=== PATIENT | female | born 1985 | race Caucasian/White ===

== ENCOUNTER 2016-12-28 00:09 | Inpatient (IN) | payer OTHER ==
[~2016-12-28] VITALS: Ht 163.8 cm; Wt 80.3 kg
[~2016-12-28 00:09] MED LIST: LEVO137T24 PO
[2016-12-28] MEDS ORDERED: Lactated Ringer's 1,000 ML IV PRN ×2 (15:51→19:38)
[2016-12-28] MEDS ORDERED: Lactated Ringer's 1,000 ML IV SCH ×2 (15:51→19:31)
[2016-12-28] MEDS ORDERED: Oxytocin 30 Units/500 mL LR 30 UNITS in IV Premix 1 EACH IV PRN ×2 (15:55→19:40)
[2016-12-28] MEDS ORDERED: Carboprost 250 mCg/mL Inj IM PRN ×2 (15:55→19:40)
[2016-12-28] MEDS ORDERED: Oxytocin 10 Unit/mL Inj IM PRN ×2 (15:55→19:40)
[2016-12-28] MEDS ORDERED: Sodium Chloride LOK Flush 10 mL Syringe IVFLUSH PRN ×2 (15:55→19:40)
[2016-12-28] MEDS ORDERED: Ondansetron 2 mg/mL 2 mL Inj IVPUSH PRN ×2 (15:55→19:35)
[2016-12-28] MEDS ORDERED: Hemorrhage Kit, Post Partum XX ONE ×3 (15:55→20:05)
[2016-12-28] MEDS ORDERED: Methylergonovine 0.2 mg/mL Inj IM PRN ×2 (15:55→19:40)
[2016-12-28] MEDS ORDERED: fentaNYL-PF 50 mCg/mL 2 mL Inj IVPUSH PRN ×2 (15:55→19:40)
[2016-12-28] MEDS ORDERED: diphenhydrAMINE 50 mg Capsule PO PRN (15:55)
[2016-12-28] MEDS ORDERED: Ondansetron 2 mg/mL 2 mL Inj ONE (17:46)
[2016-12-28] MEDS ORDERED: Lactated Ringer's 500 ML IV ONE (19:31)
[2016-12-28] MEDS ORDERED: fentaNYL 2 mCg/mL-Bupiv 0.125% 100 ML EPIDURAL SCH (19:35)
[2016-12-28] MEDS ORDERED: EPHEDrine Sulfate 50 mg/mL Inj IVPUSH PRN (19:35)
[2016-12-28] MEDS ORDERED: Atropine 1 mg/10 mL (Code) Syringe IVPUSH PRN (19:35)
[2016-12-28 19:52] LABS: Mean Corpuscular Hemoglobin 30.4 pg (27.0-35.0); Mean Corpuscular Volume 91.4 fL (81-100)
--- NOTE | 2016-12-28 23:04 | HP ---
[address] [address] HISTORY AND PHYSICAL PATIENT: BILL GARCIA : 1985 MR#: [id number] ADMIT: 12/28/2016 JOB ID: [id number] HISTORY OF PRESENT ILLNESS: This is a 31-year-old female. She is 3, para 2-0-0-2, at 39 weeks gestation. She presented to [facility] for scheduled induction of labor by Dr. Payne. She had occasional contractions, normal movement, heart tracing category 1. This is a patient who has routine care at [facility]. During her care, it was noted her blood type was O-positive, varicella immune, rubella immune. Pap smear negative. HIV negative. HBsAg negative. RPR negative. Chlamydia and gonorrhea negative. Her hemoglobin was 12.1 at second trimester She was diagnosed GDM during well controlled with diet. She had a history of thyroid carcinoma in 2010 with thyroidectomy and her TSH level was well controlled in with levothyroxine 137 mcg per day. She is GBS negative. ALLERGIES: She has no known drug allergies. PAST MEDICAL PROBLEMS: Declined. PAST SURGICAL PROBLEMS: As mentioned above history of thyroid carcinoma 1011 and she had a thyroidectomy in 2010, followed by Dr. Newsome, and levothyroxine 137 mcg per day. OBSTETRICAL HISTORY: She had two vaginal deliveries before. The first delivery was in 2010, at 42 weeks, 6 pounds 3 ounces. The second one in 2013, at 42 weeks, 8 pounds 6 ounces. GYNECOLOGIC HISTORY: Not complicated. SOCIAL HISTORY: She is not smoking. She declined alcohol and drug usage. PHYSICAL EXAMINATION: Afebrile. Cardiac: RR. No murmur. Pulmonary: Bilaterally clear. Abdomen: Soft, . Occasional contractions, category and tracing. Cervix was examined by Dr. Payne this afternoon in the office, was 3 cm dilated, 50 effaced, -3. Category 1 tracing. Extremities nontender. ASSESSMENT AND PLAN: A 31-year-old female, 3, para 2, at 39 weeks. She came in for scheduled induction of labor. 1. Will admit the patient for continuous heart tracing. 2. Will start her on Pitocin induction. 3. Patient can get epidural for pain if she prefers to. 4. Patient desires for tubal ligation. 5. Patient preferred being delivered by Dr. Payne and tubal ligation done by Kerry, but she is also okay if she gets delivered before that. MTDD
[2016-12-29] MEDS ORDERED: Sodium Chloride LOK Flush 10 mL Syringe IVFLUSH SCH (00:30)
[2016-12-29] MEDS: Lactated Ringer's 1,000 ML IV SCH ×3 (02:13→07:02)
[2016-12-29] MEDS ORDERED: Sodium Citrate-Citric Acid 15 mL Solution PO SCH (06:00)
[2016-12-29] MEDS ORDERED: Lactated Ringer's 1,000 ML IV SCH ×2 (07:26→09:53)
[2016-12-29] MEDS ORDERED: Witch Hazel-Glycerin Pads TOPICAL PRN (07:30)
[2016-12-29] MEDS ORDERED: Benzocaine (Dermoplast) 20% 60 Gm Spray TOPICAL PRN (07:30)
[2016-12-29] MEDS ORDERED: Carboprost 250 mCg/mL Inj IM PRN (07:30)
[2016-12-29] MEDS ORDERED: Oxytocin 10 Unit/mL Inj IM PRN (07:30)
[2016-12-29] MEDS ORDERED: Hemorrhage Kit, Post Partum XX ONE (07:30)
[2016-12-29] MEDS ORDERED: LANOlin HPA 7 Gm Ointment TOPICAL PRN (07:30)
[2016-12-29] MEDS ORDERED: Methylergonovine 0.2 mg/mL Inj IM PRN (07:30)
[2016-12-29] MEDS ORDERED: Oxytocin 30 Units/500 mL LR 30 UNITS in IV Premix 1 EACH IV PRN (07:30)
--- NOTE | 2016-12-29 08:24 | OP ---
[address] [address] OPERATIVE REPORT PATIENT: BILL GARCIA : 1985 MR#: [id number] ADMIT: 12/28/2016 JOB ID: [id number] DATE OF SURGERY: 12/29/2016 SURGEON: Viky Julian M.D. PREOPERATIVE DIAGNOSIS(ES): POSTOPERATIVE DIAGNOSIS(ES): DELIVERY NOTE: This is a 31-year-old female. She is 3, para 3 now status post vaginal delivery. She was admitted to the [facility] last night for induction of labor for gestational diabetes. After admission, Pitocin started. She started to have regular contractions. Her pain is mild. She does not need any pain management. Her tracing was Category 1. The patient this morning she feels abdominal pain with contraction and pressure. Requests for epidural. Epidural was placed and she felt a lot of pelvic pressure and urge to bear down. She was examined and noticed to be dilated. She has good effort to push and the infant was delivered at a STEPHANY position with several pushes. The shoulder and chest delivered without difficulty. The was placed on mother's chest with good tone and spontaneous cry. Cord clamped and cut after the pulsation disappeared. Regular cord blood collected and the placenta delivered spontaneously without difficulty and examined with 3-vessel cord. After the placenta delivered, the uterus was well contracted. Then, perineum examined and no lacerations. The scores of the infant and the weight was not available at dictation. The EBL during the delivery was 150 cc. The patient tolerated the procedure well. SONIA
[2016-12-29] MEDS ORDERED: Lactated Ringer's 1,000 ML IV PRN (09:58)
--- NOTE | 2016-12-29 09:58 | PCM.HPANE ---
Patient Data Surgeon Admitting Provider:Viky Julian MD Attending Provider:Viky Julian MD Primary Care Physician:Judi Braxton Other Provider:Duncan Guardado Anesthesia Reason for Visit Induction INDUCTION Ht/WT & BMI Body Mass Index Allergies Coded Allergies: No Known Allergies (Unverified Allergy, Unknown, 12/28/16) Past Anesthesia History Anesthesia History: Denies:: Abnormal Airway, Anesthesia Reactions, Difficult Intubation, Fam Anesthesia Reaction, Fam Malignant Hypertherm, Malignant Hyperthermia Diabetes History Hx Diabetes?: No MRSA MRSA: No Medications Reported Medications Levothyroxine (Synthroid)137 Mcg [id number] Mcg PO DAILY 30 Days Ref 0 01/12/14 History History of ENT Problems?: No HEENT History: Denies:: Abnormal Airway Cataracts Difficult Intubation Dysphagia Glaucoma Hearing Problem Sinus Problem TMJ Denture Type: None Teeth Condition: Within Normal Limits Hx of Heart Problems?: No Cardiovascular History: Denies:: AICD Abdominal Aortic Aneurism Atrial Fibrillation Cardiac Surgery Chest Pain Congestive Heart Failure Coronary Artery Disease Edema Heart Murmur Hypertension Irregular Heartbeat Pacemaker Peripheral Vascular Rheumatic Fever Thrombophlebitis Valvular Heart Disease Hx of Respiratory Problem?: No Respiratory History: Denies:: Asthma COPD Chest Surgery Cough Dyspnea Emphysema Hemoptysis Oxygen Administration Pneumonia Pulmonary Embolism Tuberculosis Use of C-PAP Machine Use of Inhalers / NEBS Hx Neurologic Problems?: No Hx of GI Problems?: No Hx of Problems?: No Female Hx: Positive for:: Currently Hx Musculoskeletal Problems?: No Hx of Psycho/Social Problems?: No Hx Surgeries?: Yes Hx Diabetes: No Smoking Status: Never Smoker Stop/Bang GEOFFREY Risk Assessment: Low Risk, <3 Yes Risk Assessment Category Category 1A: Patient has history of documented sleep apnea, and HAS NOT received any narcotic, sedative or anesthesia administration during this stay. Category 1B: Patient has history of documented sleep apnea, and HAS received any narcotic , sedative or anesthesia administration during this stay Category 2: Patient has SUSPECTED Obstructive Sleep Apnea, and HAS received any narcotic , sedative or anesthesia administration during this stay. Category 3: Patient has SUSPECTED Obstructive Sleep Apnea and HAS NOT received narcotic, sedative or anesthesia administration during this stay. Category 4: Outpatient in Procedural Areas with known sleep apnea or who screen positive for High Risk via the STOP/BANG questionnaire. Exam Exam General Appearance: Alert, Oriented X3, Cooperative HEENT/AIRWAY: MP 1 Lungs: Clear to Auscultation Heart: Exam Unremarkable Meds/Labs/Diagnostics Admission Meds Current Medications Lactated Ringer's (Lr) 1,000 ml @ 125 mls/hr Q8H IV Last administered on t 07:02; Start 12/28/16 at 19:38 Labs Test 12/28/16 19:35 12/28/16 23:41 White Blood Count 9.1th/mm3 (3.8-10.1) Red Blood Count 3.82mil/mm3 (3.90-5.20) Hemoglobin 11.6g/dL (12.0-15.6) Hematocrit 34.9% (35.0-46.0) Mean Corpuscular Volume 91.4fL (81-100) Mean Corpuscular Hemoglobin 30.4pg (27.0-35.0) Mean Corpuscular Hemoglobin Concent 33.2% (32.0-37.0) Red Cell Distribution Width 14.4% (12.3-15.4) Platelet Count 171bil/L (150-400) Hold Urine Received (Received) Plan Impression Patient chart reviewed, patient interviewed and anesthestic plan with risks, benefits, and alternatives discussed, and informed consent obtained. ASA Physical Status: ASA1 Normal Healthy Anesthetic Plan: SAB Bene/Risks/Altern/Consents: Yes HP Complete Prior to Induction: Yes Marcial Payne DO December 29, 2016 09:58
[2016-12-29] MEDS ORDERED: Atropine 0.4 mg/mL Inj IV PRN (10:00)
[2016-12-29] MEDS ORDERED: Ondansetron 2 mg/mL 2 mL Inj IVPUSH PRN (10:00)
[2016-12-29] MEDS ORDERED: fentaNYL-PF 50 mCg/mL 2 mL Inj IVPUSH PRN (10:00)
[2016-12-29] MEDS ORDERED: MetoCLOpramide 5 mg/mL 2 mL Inj IVPUSH PRN (10:00)
[2016-12-29] MEDS ORDERED: EPHEDrine Sulfate 50 mg/mL Inj IVPUSH PRN (10:00)
[2016-12-29] MEDS ORDERED: BUPIVACAINE MPF 0.25% ONE (10:57)
--- NOTE | 2016-12-29 14:02 | OP ---
[address] [address] OPERATIVE REPORT PATIENT: BILL GARCIA : 1985 MR#: [id number] ADMIT: 12/28/2016 JOB ID: [id number] DATE OF SURGERY: 12/29/2016 PREOPERATIVE DIAGNOSIS(ES): 1. Desires permanent sterilization. 2. . 3. Multigravida. POSTOPERATIVE DIAGNOSIS(ES): 1. Desires permanent sterilization. 2. . 3. Multigravida. PROCEDURE PERFORMED: bilateral tubal ligation using modified Nocona method. SURGEON: Samia Payne M.D. ANESTHESIA: Spinal. ESTIMATED BLOOD LOSS: 0 mL. COMPLICATIONS: None. FINDINGS AT TIME OF SURGERY: Normal appearing fallopian tubes bilaterally. PROCEDURE: The patient was taken to the operating room, where her spinal anesthesia was found to be adequate. She was placed in a lithotomy position and prepared and draped in a normal sterile fashion. Appropriate surgical time-out was performed. The umbilicus was injected with 10 mL of 0.25% Marcaine plain. A transverse skin incision was made at the base of the umbilicus. This incision was carried down to the underlying peritoneal cavity which was entered sharply with the Metzenbaum scissors. The left fallopian tube was then identified, followed out to the fimbriated end and then brought up through the incision. A defect was made in the mesosalpinx and two free ties of 0 plain gut were used to isolate and ligate a segment of the tube. Intervening segment was excised. This was sent to Pathology. In a similar fashion, the right fallopian tube was then identified, followed out to the fimbriated end. Grasped in the mid isthmic portion. A defect was made in the mesosalpinx with the Bovie cautery. The Bovie did arc off of the abdominal skin and create a small burn to the right of the umbilicus. Two free ties of 0 plain gut were used to isolate and ligate a segment of tube. Intervening segment was excised. The tubal lumen were cauterized bilaterally. Good hemostasis was assured. The fascia was reapproximated in a running fashion with 0-Vicryl suture. The skin was closed with a 4-0 Monocryl in a subcuticular fashion and Dermabond applied. All lap, instrument, and needle counts were correct x2 at the end of procedure and the patient was taken to her room in good condition.
--- NOTE | 2016-12-29 14:27 | PCM.HPANE ---
Patient Data Date of Service: December 29, 2016 Surgeon Admitting Provider:Viky Julian MD Attending Provider:Viky Julian MD Primary Care Physician:Judi Braxton Other Provider:Duncan Guardado Anesthesia Reason for Visit Induction INDUCTION Ht/WT & BMI Body Mass Index Allergies Coded Allergies: No Known Allergies (Unverified Allergy, Unknown, 12/28/16) Past Anesthesia History Anesthesia History: Denies:: Abnormal Airway, Anesthesia Reactions, Difficult Intubation, Fam Anesthesia Reaction, Fam Malignant Hypertherm, Malignant Hyperthermia Diabetes History Hx Diabetes?: No MRSA MRSA: No Medications Reported Medications Levothyroxine (Synthroid)137 Mcg [id number] Mcg PO DAILY 30 Days Ref 0 01/12/14 History History of ENT Problems?: No HEENT History: Denies:: Abnormal Airway Cataracts Difficult Intubation Dysphagia Glaucoma Hearing Problem Sinus Problem TMJ Denture Type: None Teeth Condition: Within Normal Limits Hx of Heart Problems?: No Cardiovascular History: Denies:: AICD Abdominal Aortic Aneurism Atrial Fibrillation Cardiac Surgery Chest Pain Congestive Heart Failure Coronary Artery Disease Edema Heart Murmur Hypertension Irregular Heartbeat Pacemaker Peripheral Vascular Rheumatic Fever Thrombophlebitis Valvular Heart Disease Hx of Respiratory Problem?: No Respiratory History: Denies:: Asthma COPD Chest Surgery Cough Dyspnea Emphysema Hemoptysis Oxygen Administration Pneumonia Pulmonary Embolism Tuberculosis Use of C-PAP Machine Use of Inhalers / NEBS Hx Neurologic Problems?: No Hx of GI Problems?: No Hx of Problems?: No Female Hx: Positive for:: Currently Hx Musculoskeletal Problems?: No Hx of Psycho/Social Problems?: No Hx Surgeries?: Yes Hx Diabetes: No Smoking Status: Never Smoker Stop/Bang Treated for Sleep Apnea?: No Do You Have a CPAP Machine?: No S-Snoring: Do You Snore Loudly: No T-Tired: feel tired, fatigued: No O-Obsered: Observed not breath: No P-Blood Pressure: treated: No B- Body Mass Index > 35 kg/m2: No A- Age over 50: No N- Neck Large Circumference: No G- Gender Male: No GEOFFREY Risk Assessment: Low Risk, <3 Yes Risk Assessment Category Category 1A: Patient has history of documented sleep apnea, and HAS NOT received any narcotic, sedative or anesthesia administration during this stay. Category 1B: Patient has history of documented sleep apnea, and HAS received any narcotic , sedative or anesthesia administration during this stay Category 2: Patient has SUSPECTED Obstructive Sleep Apnea, and HAS received any narcotic , sedative or anesthesia administration during this stay. Category 3: Patient has SUSPECTED Obstructive Sleep Apnea and HAS NOT received narcotic, sedative or anesthesia administration during this stay. Category 4: Outpatient in Procedural Areas with known sleep apnea or who screen positive for High Risk via the STOP/BANG questionnaire. Low Risk, <3 Yes Exam Exam General Appearance: Alert, Oriented X3, Cooperative HEENT/AIRWAY: MP 1 Lungs: Clear to Auscultation Heart: Exam Unremarkable Meds/Labs/Diagnostics Admission Meds Current Medications Lactated Ringer's 1,000 ml @ 125 mls/hr Q8H IV Last administered on 12/29/16 07:02; Start 12/28/16 at 19:38; Stop 12/29/16 at 11:50; Status DC Lactated Ringer's (Lr) 1,000 ml @ 125 mls/hr Q8H IV Last administered on 10:26; Start 12/29/16 at 07:26; Stop 12/29/16 at 11:50; Status DC Citric Acid/ Sodium Citrate (Bicitra) 30 ml PREOP PO Last administered on 10:26; Start 12/29/16 at 06:00 Labs Test 12/28/16 19:35 12/28/16 23:41 White Blood Count 9.1th/mm3 (3.8-10.1) Red Blood Count 3.82mil/mm3 (3.90-5.20) Hemoglobin 11.6g/dL (12.0-15.6) Hematocrit 34.9% (35.0-46.0) Mean Corpuscular Volume 91.4fL (81-100) Mean Corpuscular Hemoglobin 30.4pg (27.0-35.0) Mean Corpuscular Hemoglobin Concent 33.2% (32.0-37.0) Red Cell Distribution Width 14.4% (12.3-15.4) Platelet Count 171bil/L (150-400) Hold Urine Received (Received) Plan Impression Patient chart reviewed, patient interviewed and anesthestic plan with risks, benefits, and alternatives discussed, and informed consent obtained. NPO per Anesth. Guidelines: No ASA Physical Status: ASA2 Mod Systemic Disease Anesthetic Plan: Epidural Bene/Risks/Altern/Consents: Yes HP Complete Prior to Induction: Yes Jasiel Avila MD December 29, 2016 14:27
[2016-12-29] MEDS: oxyCODONE-Acetamin 5-325 mg Tablet PO PRN ×2 (14:36→21:10)
[2016-12-29] MEDS ORDERED: TORSEMIDE IVPUSH ONE (18:25)
--- NOTE | 2016-12-29 20:43 | PCM.ANEP1 ---
Post Anesthesia Phase 1 PACU Phase 1 Assessment Date of Service: December 29, 2016 Anesthetic Administered: SAB Level of Alertness: Awake, talking GAMA's with Equal Strength: No (SAB) Pain: No Pain Scale Score: 4 Nausea or Vomiting: No Cardiovascular Function and Hy: No Oxygen Delivery: Room Air Lungs: Clear to Auscultation Complications: No Follow up Care: No Patient Instructions Provided: Yes Marcial Payne DO December 29, 2016 20:43
[2016-12-30] MEDS: oxyCODONE-Acetamin 5-325 mg Tablet PO PRN ×3 (04:14→16:46)
[2016-12-30 06:54] LABS: Mean Corpuscular Hemoglobin 30.6 pg (27.0-35.0); Mean Corpuscular Volume 93.2 fL (81-100)
--- NOTE | 2016-12-30 09:21 | PCM.DIOB ---
Obstetrical Disch Instruction Dates of Hospitalization Date of Hospital Admission December 28, 2016 at 18:57 Providers Admitting Physician: Viky Julian MD Primary Care Physician: Judi Braxton Attending Physician: Viky Julian MD Discharge Diagnosis Discharge Diagnosis s/p spontaneous vaginal delivery s/p tubal ligation Problems: Diet Discharge Diet: No restrictions Activity Discharge Activity-General: Pelvic Rest for 6 weeks, Be up and about, Balance rest and activity, Activity as pain allows, No lifting >10 pounds for 4-6 weeks Dressing and Incisional Care Hygiene: May shower, NO bathtub, hot tub or whirlpool, Perineal care, Sitz bath , Dermoplast spray, Witch Danielle pads Follow Up Plan Follow-up appointment: Weeks (6) Call your provider for: Fever or Chills, Shortness of breath, Heavy vaginal bleeding Shreya Gregory MD December 30, 2016 09:21
[2016-12-30] MEDS ORDERED: OXYC1TAB24 PO (09:22)
[2016-12-30] MEDS ORDERED: IBUP800T28 PO (09:22)
[2016-12-30] MEDS ORDERED: DOCU-41 PO (09:22)
--- NOTE | 2016-12-30 09:58 | DIS ---
[address] [address] DISCHARGE SUMMARY PATIENT: BILL GARCIA : 1985 MR#: [id number] ADMIT: 12/28/2016 JOB ID: [id number] DIS: PREOPERATIVE DIAGNOSIS(ES): 1. A 39 week intrauterine admitted for an induction of labor. G 3, P 2-0-0-2. 2. Undesired fertility. DISCHARGE DIAGNOSES: 1. A 39 week intrauterine admitted for an induction of labor. G 3, P 2-0-0-2. 2. Undesired fertility. PROCEDURES PERFORMED: 1. Spontaneous vaginal delivery on December 29, 2016 of a live born male . 2. tubal ligation. REASON FOR ADMISSION AND HOSPITAL COURSE: This is a 31-year-old G 2, P 2-0-0-2 female who presented at 39 weeks gestation for a scheduled induction of labor by Dr. Payne. Her was otherwise complicated by GDMA1, a history thyroid carcinoma in 2010 status post thyroidectomy. She presented on the and was 3 cm dilated at admission. She received Pitocin and went on to deliver a live born male on the . Later that day, she then underwent a tubal ligation. By day #1 on the , her pain was well controlled. She was tolerating a regular diet. She was voiding and ambulating well on her own and it was at this point in time that she was deemed stable for discharge. LABORATORY DATA: At the time of admission, her white count was 9.1, her hemoglobin was 11.6, her platelets were 171. By day #1, her white count was 8.3, her hemoglobin was 11.8 and her platelets were 170. laboratory data shows blood type O-positive, rubella immune, varicella immune, hep B surface antigen negative, RPR nonreactive, GBS negative and HIV negative. INSTRUCTIONS AT DISCHARGE: The patient was advised to remain at pelvic rest for six weeks including no tampons, douching, intercourse. She was asked to call with any signs or symptoms of infection including fever greater than 100.5 degrees, severe pain, malodorous vaginal discharge, bleeding greater than one pad per hour. MEDICATIONS AT DISCHARGE: Included: 1. Motrin 800 mg p.o. q.8 hours p.r.n. pain. 2. Percocet 5/325 1-2 tabs p.o. q.4 hours p.r.n. pain, #20. 3. She was asked to continue her vitamins as prescribed. All questions and concerns of the patient were answered. She was deemed stable for discharge on day and postoperative day #1.
--- NOTE | 2016-12-30 16:08 | PATH ---
SURGICAL PATHOLOGY Attending Physician:Viky Julian MD CASE STATUS: Signed Out PATIENT NAME: BILL GARCIA PID: [id number] : 1985 DATE COLLECTED:12/29/2016 00:00 SPECIMEN: 1: Fallopian Tube, Biopsy 2: Fallopian Tube, Biopsy CLINICAL HISTORY: 1). PORTION OF RIGHT FALLOPIAN TUBE 2). PORTION OF LEFT FALLOPIAN TUBE FINAL DIAGNOSIS: 1.PORTION OF RIGHT FALLOPIAN TUBE: SEGMENT OF FALLOPIAN TUBE WITH NO PATHOLOGIC ALTERATIONS. 2.PORTION OF LEFT FALLOPIAN TUBE: SEGMENT OF FALLOPIAN TUBE WITH NO PATHOLOGIC ALTERATIONS. ICD10 CODEZ30.2 GROSS DESCRIPTION: The specimen is received in 2 containers not labeled as to the fixative and labeled with the patient's name. 1). The specimen is sublabeled "portion of right fallopian tube" and consists of a 1.4 x 1.0 x 0.6 CM cylindrical-shaped portion of tissue. The specimen is inked blue. The specimen is sectioned into 4 pieces and entirely submitted in cassette 1A. 2). The specimen is sublabeled "portion of left fallopian tube" and consists of a 1.7 x 0.8 x 0.6 CM cylindrical-shaped portion of tissue. The specimen is inked blue. The specimen is sectioned into 4 pieces and entirely submitted in cassette 2A. 12/29/2016 DAC MICRO DESCRIPTION: See diagnosis. ICD-9 CODES: CPT CODES: 1: 99975 2: 86770 Electronically Signed Out Niya Kendall MD [facility] Pathology [facility] [address], [place] [address] Technical component performed at [facility] [address], [place], [address]
[2016-12-30 16:38] VITALS: BP 95/50; PULSE 57; RESP 12
== END 2016-12-30 17:47 | disposition home or self-care (01) | DRG 767 ==
LOC: FBC 18:57
PROVIDERS: ADMIT Obstetrics & Gynecology; ATTEND Obstetrics & Gynecology
PROC: 3E033VJ Introduction of Other Hormone into Peripheral Vein, Percutaneous Approach (ICD-10-PCS; 2016-12-28)
PROC: 0UB70ZZ Excision of Bilateral Fallopian Tubes, Open Approach (ICD-10-PCS; 2016-12-29)
PROC: 10E0XZZ Delivery of Products of Conception, External Approach (ICD-10-PCS; principal; 2016-12-29 11:30)
DX: O24.420 Gestational diabetes mellitus in childbirth, diet controlled (principal); Z30.2 Encounter for sterilization; Z3A.39 39 weeks gestation of pregnancy; Z37.0 Single live birth; Z64.0 Problems related to unwanted pregnancy